=== PATIENT | female | born 1945 | race Caucasian/White ===

== ENCOUNTER 2022-01-06 15:24 | Inpatient (IN) | payer MEDICARE, OTHER, SELFPAY ==
[2022-01-06 16:04] LABS: #Monocytes 0.3 thou/uL (0.11-0.59); #Neutrophils 9.6 thou/uL (1.40-6.50); %Basophils 0.2 % (0.0-1.0); %Eosinophils 0.2 % (0.0-10.0); %Monocytes 2.9 % (0.0-10.0); %Neutrophils 87.8 % (42.0-75.0); Hemoglobin 12.3 g/dL (12.0-16.0); Mean Corpuscular HGB CONC 32.4 g/dL (32.0-36.0); Mean Corpuscular Hemoglobin 33.5 pg (27.0-31.0); Mean Platelet Volume 8.4 fL (7.4-10.4); Platelet Count 195 thou/uL (130-400); RBC Distribution Width 12.6 % (11.5-14.5); Red Blood Cell (RBC) Count 3.65 mill/uL (4.20-5.40); White Blood Cell (WBC) Count 10.9 thou/uL (4.8-10.8)
[2022-01-06 16:25] LABS: ALT (SGPT) 23 U/L (8-55); AST (SGOT) 66 U/L (5-34); Albumin 4.1 g/dL (3.4-4.8); Alkaline Phosphatase 58 U/L (40-110); Anion Gap 15 mmol/L (10-20); BUN (Urea Nitrogen) 27 mg/dL (9.8-20.1); Bilirubin, Total 1.3 mg/dL (0.2-1.2); Calc. Creatinine Clearance 0 mL/min (70-130); Calcium 11.8 mg/dL (7.8-10.44); Carbon Dioxide 22 mmol/L (23-31); Chloride 102 mmol/L (98-107); Estimated GFR 53; Globulin 3.6 g/dL (2.4-3.5); Glucose 122 mg/dL (83-110); Potassium 3.8 mmol/L (3.5-5.1); Protein, Total 7.7 g/dL (5.8-8.1); Sodium 135 mmol/L (136-145)
[2022-01-06 17:57] LABS: Bilirubin Negative (Negative); Blood, Urine Negative (Negative); Clarity Clear (Clear); Glucose, Urine (Dipstick) Normal (Negative); Ketone, Urine Negative (Negative); Leukocyte Negative Leu/uL (Negative); Nitrite Negative (Negative); Protein, Urine (Dipstick) 10 mg/dL (Neg-Trace); Specific Gravity, Urine 1.013 (1.002-1.036); Urobilinogen Normal mg/dL (Less than 2)
[2022-01-06] MEDS ORDERED: Acetaminophen 325 MG TAB PO PRN ×2 (20:05→20:15)
[2022-01-06] MEDS ORDERED: Ondansetron PF 4 MG/2 ML Vial IVP PRN (20:15)
[2022-01-06] MEDS ORDERED: Sodium Chloride 0.9% 1,000 ML IV SCH ×2 (20:15)
[2022-01-06] MEDS ORDERED: Ondansetron ODT 4 MG TAB SL PRN (20:15)
[2022-01-06 20:46] LABS: Amphetamine Not Detected (NotDetected); Barbiturates Screen Not Detected (NotDetected); Benzodiazepine Screen Not Detected (NotDetected); Cocaine Metabolite Screen Not Detected (NotDetected); Methadone Not Detected (NotDetected); Methamphetamine Not Detected (NotDetected); Opiate Screen Not Detected (NotDetected); Oxycodone Screen Not Detected (NotDetected); Phencyclidine (PCP) Not Detected (NotDetected); THC/Cannabinoid Screen Not Detected (NotDetected); Tricyclic Screen Not Detected (NotDetected)
[2022-01-06 21:41] LABS: SARS-CoV-2 NAA Rapid Test Not Detected (NotDetected)
[2022-01-06] MEDS: Sodium Chloride 0.9% 1,000 ML IV SCH (23:00)
[2022-01-07 04:29] LABS: #Eosinphils 0.2 thou/uL (0.0-0.7); #Lymphocytes 1.1 thou/uL (1.20-3.40); #Monocytes 0.5 thou/uL (0.11-0.59); #Neutrophils 5.8 thou/uL (1.40-6.50); %Basophils 0.6 % (0.0-1.0); %Eosinophils 2.6 % (0.0-10.0); %Neutrophils 76.8 % (42.0-75.0); Hemoglobin 11.4 g/dL (12.0-16.0); Mean Corpuscular HGB CONC 32.8 g/dL (32.0-36.0); Mean Corpuscular Hemoglobin 34.2 pg (27.0-31.0); Mean Platelet Volume 7.4 fL (7.4-10.4); Platelet Count 235 thou/uL (130-400); RBC Distribution Width 12.6 % (11.5-14.5); Red Blood Cell (RBC) Count 3.34 mill/uL (4.20-5.40); White Blood Cell (WBC) Count 7.5 thou/uL (4.8-10.8)
[2022-01-07 04:48] LABS: ALT (SGPT) 18 U/L (8-55); AST (SGOT) 53 U/L (5-34); Albumin 3.6 g/dL (3.4-4.8); Alkaline Phosphatase 50 U/L (40-110); Anion Gap 10 mmol/L (10-20); BUN (Urea Nitrogen) 24 mg/dL (9.8-20.1); Bilirubin, Total 1.2 mg/dL (0.2-1.2); CK (CPK) 903 U/L (29-168); Calc. Creatinine Clearance 0 mL/min (70-130); Calcium 11.1 mg/dL (7.8-10.44); Carbon Dioxide 28 mmol/L (23-31); Chloride 103 mmol/L (98-107); Estimated GFR 62; Globulin 3.1 g/dL (2.4-3.5); Glucose 99 mg/dL (83-110); Magnesium 1.7 mg/dL (1.6-2.6); Potassium 3.5 mmol/L (3.5-5.1); Protein, Total 6.7 g/dL (5.8-8.1); Sodium 137 mmol/L (136-145)
[2022-01-07 05:17] LABS: Thyroid Stimulating Hormone 90.2389 uIU/mL (0.35-4.94)
[2022-01-07] MEDS ORDERED: Magnesium 2 GM/50 ML(in water) 2 GM in Premix Bag 1 BAG IVPB SCH (09:45)
[2022-01-07] MEDS: Sodium Chloride 0.9% 1,000 ML IV SCH (09:55)
[2022-01-07] MEDS ORDERED: Enoxaparin Sodium 40 MG/0.4 ML SYRINGE ONE (10:10)
[2022-01-07] MEDS ORDERED: Magnesium 2 GM/50 ML BAG (IN WATER) ONE (10:10)
[2022-01-07 10:29] LABS: Free T4 (Free Thyroxine) 0.43 ng/dL (0.70-1.48)
[2022-01-07] MEDS: Enoxaparin Sodium 40 MG/0.4 ML SYRINGE SC SCH (10:50)
[2022-01-07 12:23] VITALS: BMI 25.7
[2022-01-07 14:06] LABS: Free T4 (Free Thyroxine) 0.41 ng/dL (0.70-1.48)
[2022-01-08 05:03] LABS: #Eosinphils 0.2 thou/uL (0.0-0.7); #Lymphocytes 1.2 thou/uL (1.20-3.40); #Monocytes 0.5 thou/uL (0.11-0.59); #Neutrophils 5.2 thou/uL (1.40-6.50); %Basophils 0.3 % (0.0-1.0); %Eosinophils 3.3 % (0.0-10.0); %Lymphocytes 16.6 % (21.0-51.0); %Monocytes 6.3 % (0.0-10.0); %Neutrophils 73.4 % (42.0-75.0); Hemoglobin 10.8 g/dL (12.0-16.0); Mean Corpuscular HGB CONC 32.3 g/dL (32.0-36.0); Mean Platelet Volume 7.6 fL (7.4-10.4); Platelet Count 222 thou/uL (130-400); RBC Distribution Width 12.7 % (11.5-14.5); Red Blood Cell (RBC) Count 3.27 mill/uL (4.20-5.40); White Blood Cell (WBC) Count 7.1 thou/uL (4.8-10.8)
[2022-01-08 05:24] LABS: ALT (SGPT) 17 U/L (8-55); AST (SGOT) 39 U/L (5-34); Albumin 3.4 g/dL (3.4-4.8); Alkaline Phosphatase 47 U/L (40-110); Anion Gap 10 mmol/L (10-20); BUN (Urea Nitrogen) 24 mg/dL (9.8-20.1); Bilirubin, Total 0.7 mg/dL (0.2-1.2); Calc. Creatinine Clearance 48 mL/min (70-130); Calcium 9.6 mg/dL (7.8-10.44); Carbon Dioxide 24 mmol/L (23-31); Chloride 107 mmol/L (98-107); Estimated GFR 62; Globulin 2.8 g/dL (2.4-3.5); Glucose 106 mg/dL (83-110); Potassium 3.4 mmol/L (3.5-5.1); Protein, Total 6.2 g/dL (5.8-8.1); Sodium 138 mmol/L (136-145)
[2022-01-08] MEDS: Levothyroxine Sodium 75 MCG TAB PO SCH (06:10)
[2022-01-08] MEDS: Enoxaparin Sodium 40 MG/0.4 ML SYRINGE SC SCH (08:32)
[2022-01-09] MEDS: Levothyroxine Sodium 75 MCG TAB PO SCH (07:05)
[2022-01-09] MEDS: Enoxaparin Sodium 40 MG/0.4 ML SYRINGE SC SCH (08:26)
[2022-01-10] MEDS: Levothyroxine Sodium 75 MCG TAB PO SCH (05:44)
[2022-01-10] MEDS: Folic Acid 1 MG TAB PO SCH (08:06)
[2022-01-10] MEDS: Cyanocobalamin (Vitamin B-12) 1,000 MCG TAB PO SCH (08:06)
[2022-01-10] MEDS: Aspirin 81 mg Enteric Coated Tablet PO SCH (08:06)
[2022-01-10] MEDS: Multivitamin W/ Minerals 1 TAB PO SCH (08:06)
[2022-01-10] MEDS: Enoxaparin Sodium 40 MG/0.4 ML SYRINGE SC SCH (08:06)
[2022-01-10 08:13] LABS: #Eosinphils 0.1 thou/uL (0.0-0.7); #Monocytes 0.7 thou/uL (0.11-0.59); #Neutrophils 6.1 thou/uL (1.40-6.50); %Basophils 0.3 % (0.0-1.0); %Lymphocytes 12.8 % (21.0-51.0); Hemoglobin 10.5 g/dL (12.0-16.0); Mean Corpuscular HGB CONC 32.8 g/dL (32.0-36.0); Mean Corpuscular Hemoglobin 33.3 pg (27.0-31.0); Platelet Count 218 thou/uL (130-400); RBC Distribution Width 12.6 % (11.5-14.5); Red Blood Cell (RBC) Count 3.14 mill/uL (4.20-5.40)
[2022-01-10 08:36] LABS: ALT (SGPT) 16 U/L (8-55); AST (SGOT) 24 U/L (5-34); Albumin 3.3 g/dL (3.4-4.8); Alkaline Phosphatase 45 U/L (40-110); Anion Gap 9 mmol/L (10-20); BUN (Urea Nitrogen) 16 mg/dL (9.8-20.1); Bilirubin, Total 0.9 mg/dL (0.2-1.2); Calc. Creatinine Clearance 59 mL/min (70-130); Calcium 9.8 mg/dL (7.8-10.44); Carbon Dioxide 25 mmol/L (23-31); Chloride 104 mmol/L (98-107); Estimated GFR 78; Globulin 3.2 g/dL (2.4-3.5); Glucose 106 mg/dL (83-110); Potassium 3.6 mmol/L (3.5-5.1); Protein, Total 6.5 g/dL (5.8-8.1); Sodium 134 mmol/L (136-145)
[2022-01-10] MEDS: Transdermal Patch Removal TOP SCH (21:35)
[2022-01-11] MEDS: Levothyroxine Sodium 75 MCG TAB PO SCH (05:37)
[2022-01-11] MEDS: Aspirin 81 mg Enteric Coated Tablet PO SCH (08:08)
[2022-01-11] MEDS: Enoxaparin Sodium 40 MG/0.4 ML SYRINGE SC SCH (08:08)
[2022-01-11] MEDS: Cyanocobalamin (Vitamin B-12) 1,000 MCG TAB PO SCH (08:08)
[2022-01-11] MEDS: Multivitamin W/ Minerals 1 TAB PO SCH (08:08)
[2022-01-11] MEDS: Folic Acid 1 MG TAB PO SCH (08:08)
[2022-01-11] MEDS: Lidocaine 5% Patch TD SCH (08:08)
[2022-01-11] MEDS ORDERED: Calcium Carbonate 500 MG ChewTAB PO SCH (20:15)
[2022-01-11] MEDS: Transdermal Patch Removal TOP SCH (20:33)
[2022-01-12] MEDS: Levothyroxine Sodium 75 MCG TAB PO SCH (05:22)
[2022-01-12] MEDS: Lidocaine 5% Patch TD SCH ×2 (10:15→10:16)
[2022-01-12] MEDS: Aspirin 81 mg Enteric Coated Tablet PO SCH (10:16)
[2022-01-12] MEDS: Cyanocobalamin (Vitamin B-12) 1,000 MCG TAB PO SCH (10:16)
[2022-01-12] MEDS: Multivitamin W/ Minerals 1 TAB PO SCH (10:16)
[2022-01-12] MEDS: Folic Acid 1 MG TAB PO SCH (10:16)
[2022-01-12] MEDS: Enoxaparin Sodium 40 MG/0.4 ML SYRINGE SC SCH (10:16)
[2022-01-12] MEDS: Calcium Carbonate 500 MG ChewTAB PO PRN ×2 (15:50→21:26)
[2022-01-12] MEDS: Famotidine 20 MG TAB PO SCH (21:27)
[2022-01-12] MEDS: Transdermal Patch Removal TOP SCH (22:22)
[2022-01-13] MEDS: Levothyroxine Sodium 75 MCG TAB PO SCH (05:37)
[2022-01-13] MEDS: Folic Acid 1 MG TAB PO SCH (09:28)
[2022-01-13] MEDS: Famotidine 20 MG TAB PO SCH ×2 (09:28→21:39)
[2022-01-13] MEDS: Cyanocobalamin (Vitamin B-12) 1,000 MCG TAB PO SCH (09:28)
[2022-01-13] MEDS: Aspirin 81 mg Enteric Coated Tablet PO SCH (09:28)
[2022-01-13] MEDS: Multivitamin W/ Minerals 1 TAB PO SCH (09:28)
[2022-01-13] MEDS: Enoxaparin Sodium 40 MG/0.4 ML SYRINGE SC SCH (09:30)
[2022-01-13] MEDS: Lidocaine 5% Patch TD SCH (12:09)
[2022-01-13] MEDS: Transdermal Patch Removal TOP SCH (21:40)
[2022-01-14] MEDS: Levothyroxine Sodium 75 MCG TAB PO SCH (06:07)
[2022-01-14] MEDS: Cyanocobalamin (Vitamin B-12) 1,000 MCG TAB PO SCH (08:39)
[2022-01-14] MEDS: Famotidine 20 MG TAB PO SCH ×2 (08:39→21:19)
[2022-01-14] MEDS: Aspirin 81 mg Enteric Coated Tablet PO SCH (08:39)
[2022-01-14] MEDS: Multivitamin W/ Minerals 1 TAB PO SCH (08:39)
[2022-01-14] MEDS: Enoxaparin Sodium 40 MG/0.4 ML SYRINGE SC SCH (08:39)
[2022-01-14] MEDS: Folic Acid 1 MG TAB PO SCH (08:39)
[2022-01-14] MEDS: Lidocaine 5% Patch TD SCH (08:39)
[2022-01-14 23:18] VITALS: TEMP 98.1
[2022-01-15] MEDS: Transdermal Patch Removal TOP SCH (01:05)
[2022-01-15] MEDS: Levothyroxine Sodium 75 MCG TAB PO SCH (05:45)
[2022-01-15] MEDS: Cyanocobalamin (Vitamin B-12) 1,000 MCG TAB PO SCH (09:35)
[2022-01-15] MEDS: Famotidine 20 MG TAB PO SCH (09:35)
[2022-01-15] MEDS: Lidocaine 5% Patch TD SCH (09:35)
[2022-01-15] MEDS: Folic Acid 1 MG TAB PO SCH (09:35)
[2022-01-15] MEDS: Enoxaparin Sodium 40 MG/0.4 ML SYRINGE SC SCH (09:35)
[2022-01-15] MEDS: Multivitamin W/ Minerals 1 TAB PO SCH (09:35)
[2022-01-15] MEDS: Aspirin 81 mg Enteric Coated Tablet PO SCH (09:38)
[2022-01-15 11:24] VITALS: BP 147/80
== END 2022-01-15 13:20 | DRG 553 ==
LOC: ERS 15:24 → ERHOLD 18:58 → 2SW 19:38 → OBSVTOIN 01-08 15:28 → SURG A 01-09 19:31 → SJJU 01-10 13:02 → SURG A 01-10 13:03
PROVIDERS: ADMIT Internal Medicine; ATTEND Internal Medicine
DX: M17.11 Unilateral primary osteoarthritis, right knee (principal); G93.41 Metabolic encephalopathy; E83.52 Hypercalcemia; Z20.822 Contact with and (suspected) exposure to COVID-19; G40.909 Epilepsy, unspecified, not intractable, without status epilepticus; R29.6 Repeated falls; E03.9 Hypothyroidism, unspecified; D64.9 Anemia, unspecified; E87.6 Hypokalemia; G93.89 Other specified disorders of brain; Z88.0 Allergy status to penicillin; Z88.8 Allergy status to other drugs, medicaments and biological substances; Z79.82 Long term (current) use of aspirin; Z90.710 Acquired absence of both cervix and uterus; Z51.5 Encounter for palliative care; Z91.14 Patient's other noncompliance with medication regimen
CPT/HCPCS: 36415; 70450; 70551; 71045; 80053; 80306; 81003; 82140; 82550; 82607; 83735; 84100; 84439; 84443; 84481; 84484; 85025; 87040; 90471; 90732; 93005; 93306; 95816; 95819; 95957; 96372; 96374; G0009; G0378; J1650; J3475; J7050; U0002

== ENCOUNTER 2022-03-21 22:58 | Emergency (ER) | payer MEDICARE, OTHER ==
[2022-03-21] MEDS ORDERED: Ondansetron PF 4 MG/2 ML Vial ONE (23:17)
[2022-03-21 23:44] LABS: #Eosinphils 0.1 thou/uL (0.0-0.7); #Lymphocytes 1.3 thou/uL (1.20-3.40); #Monocytes 0.4 thou/uL (0.11-0.59); #Neutrophils 6.2 thou/uL (1.40-6.50); %Basophils 0.5 % (0.0-1.0); %Eosinophils 0.9 % (0.0-10.0); %Monocytes 4.6 % (0.0-10.0); %Neutrophils 77.9 % (42.0-75.0); Hemoglobin 12.6 g/dL (12.0-16.0); Mean Corpuscular HGB CONC 33.2 g/dL (32.0-36.0); Mean Corpuscular Hemoglobin 32.6 pg (27.0-31.0); Mean Corpuscular Volume 98.4 fl (78.0-98.0); Mean Platelet Volume 7.7 fL (7.4-10.4); Platelet Count 255 10x3/uL (130-400); RBC Distribution Width 13.3 % (11.5-14.5); Red Blood Cell (RBC) Count 3.87 mill/uL (4.20-5.40)
[2022-03-22 00:04] LABS: ALT (SGPT) 12 U/L (8-55); AST (SGOT) 26 U/L (5-34); Alkaline Phosphatase 65 U/L (40-110); Anion Gap 15 mmol/L (10-20); BUN (Urea Nitrogen) 25 mg/dL (9.8-20.1); Bilirubin, Total 0.8 mg/dL (0.2-1.2); Calc. Creatinine Clearance 0 mL/min (70-130); Carbon Dioxide 23 mmol/L (23-31); Chloride 103 mmol/L (98-107); Estimated GFR 77; Globulin 4.1 g/dL (2.4-3.5); Glucose 109 mg/dL (83-110); Lipase 27 U/L (8-78); Potassium 4.3 mmol/L (3.5-5.1); Protein, Total 8.1 g/dL (5.8-8.1); Sodium 137 mmol/L (136-145)
== END 2022-03-22 03:30 | disposition home or self-care (01) ==
LOC: ERS 22:58
DX: R11.2 Nausea with vomiting, unspecified (principal); I10 Essential (primary) hypertension; E83.52 Hypercalcemia; E03.9 Hypothyroidism, unspecified
CPT/HCPCS: 71045; 80053; 83605; 83690; 85025; 93005; 96361; 96374; J2405

== ENCOUNTER 2022-11-12 11:43 | Day surgery (SDC) | payer MEDICARE ==
[2022-11-11 12:06] VITALS: BMI 20.5
[2022-11-12] MEDS ORDERED: PROPOFOL 200 MG/20 ML VIAL ONE (12:50)
[2022-11-12] MEDS ORDERED: Lidocaine 1% PF 5 ML VIAL ONE (12:50)
[2022-11-12] MEDS ORDERED: Ondansetron PF 4 MG/2 ML Vial ONE (12:50)
== END 2022-11-12 14:37 | disposition home or self-care (01) ==
LOC: SDC 11:43
PROVIDERS: ATTEND Internal Medicine Gastroenterology
PROC: 0DBH8ZZ Excision of Cecum, Via Natural or Artificial Opening Endoscopic (ICD-10-PCS; principal; 2022-11-12)
DX: D12.0 Benign neoplasm of cecum (principal); K64.8 Other hemorrhoids; K57.30 Diverticulosis of large intestine without perforation or abscess without bleeding; K63.89 Other specified diseases of intestine; G40.909 Epilepsy, unspecified, not intractable, without status epilepticus; I82.409 Acute embolism and thrombosis of unspecified deep veins of unspecified lower extremity; D64.9 Anemia, unspecified; E03.9 Hypothyroidism, unspecified; Z88.0 Allergy status to penicillin; Z88.8 Allergy status to other drugs, medicaments and biological substances; Z79.890 Hormone replacement therapy; Z79.01 Long term (current) use of anticoagulants
CPT/HCPCS: 88305; J2405; J2704